=== PATIENT | male | born 1945 | race Caucasian/White ===

== ENCOUNTER → 2019-06-12 | Outpatient (CLI) | payer MEDICARE ==
--- NOTE | 2019-06-12 11:24 | REP ---
Right foot: Four views. History: Right foot pain. Findings: Four views of the right foot demonstrate Achilles calcaneal spurring. Vascular calcifications noted. Overall mineralization pattern is normal. There is a minimal hallux valgus with mild osteoarthritic spurring at the first MTP joint. There is a tiny accessory ossicle at the lateral aspect of the fourth DIP joint. No acute bony abnormality is seen. Impression: Mild osteoarthritic changes. Vascular calcification and heel spurring. Electronically Signed by Dionisio Khan MD 06/12/2019 12:16 P
== END ==
LOC: M CLY 08:09
PROVIDERS: ATTEND Family Medicine
DX: M19.071 Primary osteoarthritis, right ankle and foot (principal); M77.31 Calcaneal spur, right foot; M79.671 Pain in right foot

== ENCOUNTER → 2020-06-06 | Outpatient (REF) | payer MEDICARE ==
[2020-06-06 17:53] LABS: BASO # 0.1 10^3/uL (0.0-0.2); BASO % 1.3 % (0.0-1.0); EOS # 0.3 10^3/uL (0.0-0.5); EOS % 5.5 % (0.0-3.0); HEMATOCRIT 44.9 % (42.0-52.0); HEMOGLOBIN 14.7 g/dl (13.5-17.5); LYMPH # 1.5 10^3/uL (1.5-5.0); LYMPH % 33.4 % (24.0-44.0); MEAN CORPUSCULAR HEMOGLOBIN 28.8 pg (27.0-33.0); MEAN CORPUSCULAR HGB CONC 32.7 g/dl (32.0-36.5); MONO # 0.6 10^3/uL (0.0-0.8); MONO % 13.1 % (0.0-5.0); NEUTROPHILS # 2.1 10^3/uL (1.5-8.5); NEUTROPHILS % 46.3 % (36.0-66.0); PLATELET COUNT, AUTOMATED 212 10^3/uL (150-450); WHITE BLOOD COUNT 4.6 10^3/uL (4.0-10.0)
[2020-06-06 19:16] LABS: ALBUMIN 4.3 GM/DL (3.2-5.2); ALT/SGPT 55 U/L (12-78); BILIRUBIN,TOTAL 0.4 MG/DL (0.2-1.0); BLOOD UREA NITROGEN 25 MG/DL (7-18); CALCIUM LEVEL 9.6 MG/DL (8.8-10.2); CARBON DIOXIDE LEVEL 27 MEQ/L (21-32); CHLORIDE LEVEL 105 MEQ/L (98-107); CHOLESTEROL LEVEL 229 MG/DL (<200); CHOLESTEROL RISK RATIO 6.939 (<5); CREATININE FOR GFR 1.31 MG/DL (0.70-1.30); GLOMERULAR FILTRATION RATE 56.8 (>42); GLUCOSE, FASTING 173 MG/DL (70-100); HDL CHOLESTEROL 33 MG/DL (>40); NON-HDL-C 196 MG/DL; POTASSIUM SERUM 4.5 MEQ/L (3.5-5.1); SODIUM LEVEL 138 MEQ/L (136-145); TOTAL PROTEIN 7.4 GM/DL (6.4-8.2); TRIGLYCERIDES LEVEL 449 MG/DL (<150)
[2020-06-06 20:31] LABS: HEMOGLOBIN A1c 7.3 %
== END ==
LOC: M SFHCCLAY 12:21
PROVIDERS: ATTEND Family Medicine
DX: I10 Essential (primary) hypertension (principal); E11.9 Type 2 diabetes mellitus without complications; E78.5 Hyperlipidemia, unspecified

== ENCOUNTER → 2020-06-10 | Outpatient (CLI) | payer SELFPAY | LOC: M LABSMTC 13:05 | PROVIDERS: ATTEND Pediatrics | DX: Z20.828 Contact with and (suspected) exposure to other viral communicable diseases (principal) ==

== ENCOUNTER → 2020-06-14 | Outpatient (CLI) | payer MEDICARE ==
--- NOTE | 2020-06-14 08:35 | REP ---
INDICATION: M79.662 PAIN IN LEFT LOWER LEG COMPARISON: None. TECHNIQUE: There are four views: FINDINGS: Mineralization is normal. There is a calcification at the tip of the medial malleolus and a calcification of the tip of the lateral malleolus these are non-specific and could represent accessory ossicles or avulsion is. Correlate with clinical findings. No other evidence of fracture. Joint spaces are unremarkable. There are calcaneal plantar and Achilles spurs. IMPRESSION: Accessory ossicles versus avulsion is at the tips of the medial and lateral malleoli. Calcaneal spurs. Otherwise, negative left tibia-fibula. <Electronically signed by Warner Nunez > 06/14/20 [id number]
== END ==
LOC: M CLY 08:05
PROVIDERS: ATTEND Family Medicine
DX: M77.32 Calcaneal spur, left foot (principal); M79.662 Pain in left lower leg
CPT/HCPCS: 73590; G0463

== ENCOUNTER → 2020-09-06 | Outpatient (REF) | payer MEDICARE ==
[2020-09-06 16:44] LABS: HEMOGLOBIN A1c 7.1 %
[2020-09-06 16:57] LABS: ALBUMIN 4.2 GM/DL (3.2-5.2); BILIRUBIN,TOTAL 0.4 MG/DL (0.2-1.0); CALCIUM LEVEL 9.5 MG/DL (8.8-10.2); CREATININE FOR GFR 1.33 MG/DL (0.70-1.30); GLOMERULAR FILTRATION RATE 55.8 (>42); POTASSIUM SERUM 5.1 MEQ/L (3.5-5.1); TOTAL PROTEIN 7.8 GM/DL (6.4-8.2)
== END ==
LOC: M SFHCCLAY 09:54
PROVIDERS: ATTEND Family Medicine
DX: E11.42 Type 2 diabetes mellitus with diabetic polyneuropathy (principal)
CPT/HCPCS: 80053; 83036; G0463

== ENCOUNTER → 2020-11-08 | Outpatient (CLI) | payer MEDICARE ==
--- NOTE | 2020-11-08 14:04 | REP ---
INDICATION: SOB COMPARISON: 08/06/2006. TECHNIQUE: PA/Lateral FINDINGS: Lungs: Clear, no infiltrate. Heart: Normal in size. Mediastinum: Mediastinal silhouette unremarkable. Pleural angles: Unremarkable.. Bones and soft tissues: There are degenerative changes of the spine without compression deformity. IMPRESSION: No acute pulmonary disease. <Electronically signed by Warner Mccollum > 11/08/20 1400
== END ==
LOC: M CLY 13:21
PROVIDERS: ATTEND Family Medicine
DX: R06.02 Shortness of breath (principal)
CPT/HCPCS: 71046; G0463

== ENCOUNTER → 2020-12-27 | Outpatient (REF) | payer MEDICARE ==
[2020-12-27 11:47] LABS: HEMOGLOBIN A1c 6.8 %
[2020-12-27 12:02] LABS: ALT/SGPT 62 U/L (12-78); BILIRUBIN,TOTAL 0.4 MG/DL (0.2-1.0); BLOOD UREA NITROGEN 21 MG/DL (7-18); CALCIUM LEVEL 9.7 MG/DL (8.8-10.2); CARBON DIOXIDE LEVEL 29 MEQ/L (21-32); CHLORIDE LEVEL 104 MEQ/L (98-107); CHOLESTEROL LEVEL 224 MG/DL (<200); CHOLESTEROL RISK RATIO 8.296 (<5); CREATININE FOR GFR 1.18 MG/DL (0.70-1.30); GLOMERULAR FILTRATION RATE > 60.0 (>42); GLUCOSE, FASTING 135 MG/DL (70-100); HDL CHOLESTEROL 27 MG/DL (>40); NON-HDL-C 197 MG/DL; POTASSIUM SERUM 4.9 MEQ/L (3.5-5.1); SODIUM LEVEL 139 MEQ/L (136-145); TOTAL PROTEIN 7.3 GM/DL (6.4-8.2); TRIGLYCERIDES LEVEL 580 MG/DL (<150)
== END ==
LOC: M SFHCCLAY 08:50
PROVIDERS: ATTEND Family Medicine
DX: E11.42 Type 2 diabetes mellitus with diabetic polyneuropathy (principal); E78.5 Hyperlipidemia, unspecified
CPT/HCPCS: 80053; 80061; 83036; G0463

== ENCOUNTER → 2021-04-25 | Outpatient (REF) | payer MEDICARE ==
[2021-04-25 11:35] LABS: HEMOGLOBIN A1c 7.1 %
[2021-04-25 11:57] LABS: ALBUMIN 3.9 GM/DL (3.2-5.2); BILIRUBIN,TOTAL 0.4 MG/DL (0.2-1.0); CALCIUM LEVEL 9.1 MG/DL (8.8-10.2); CREATININE FOR GFR 1.38 MG/DL (0.70-1.30); GLOMERULAR FILTRATION RATE 53.3 (>42); POTASSIUM SERUM 4.6 MEQ/L (3.5-5.1); TOTAL PROTEIN 7.6 GM/DL (6.4-8.2)
== END ==
LOC: M SFHCCLAY 07:41
PROVIDERS: ATTEND Family Medicine
DX: E11.42 Type 2 diabetes mellitus with diabetic polyneuropathy (principal)
CPT/HCPCS: 80053; 83036; G0463

== ENCOUNTER → 2021-07-25 | Outpatient (REF) | payer MEDICARE ==
[~2021-07-25] MED LIST: AMIT10TA7 PO; CITA20TA6 PO; FLUT1INH INH; GLIM2TAB4 PO; HYDR12CA PO; LOSA100T45 PO; METO100T5 PO; OMEP1CAP73 PO; PRAV40TA2 PO; PREG50CA PO
[2021-07-25 12:21] LABS: HEMOGLOBIN A1c 6.8 %
[2021-07-25 12:25] LABS: ALBUMIN 3.9 GM/DL (3.2-5.2); BILIRUBIN,TOTAL 0.5 MG/DL (0.2-1.0); CALCIUM LEVEL 9.5 MG/DL (8.8-10.2); CREATININE FOR GFR 1.31 MG/DL (0.70-1.30); GLOMERULAR FILTRATION RATE 56.6 (>42); POTASSIUM SERUM 4.4 MEQ/L (3.5-5.1); TOTAL PROTEIN 7.3 GM/DL (6.4-8.2)
== END ==
LOC: M SFHCCLAY 07:51
PROVIDERS: ATTEND Family Medicine
DX: E11.42 Type 2 diabetes mellitus with diabetic polyneuropathy (principal)

== ENCOUNTER → 2021-08-15 | Outpatient (CLI) | payer MEDICARE | LOC: M SOG 09:27 | PROVIDERS: ATTEND Orthopaedic Surgery Hand Surgery | DX: M79.644 Pain in right finger(s) (principal); M79.645 Pain in left finger(s) ==

== ENCOUNTER → 2021-08-30 | Outpatient (CLI) | payer MEDICARE | LOC: M LABSMTC 09:13 | PROVIDERS: ATTEND Anesthesiology | DX: Z01.812 Encounter for preprocedural laboratory examination (principal); Z20.822 Contact with and (suspected) exposure to COVID-19 ==

== ENCOUNTER 2021-09-03 10:29 | Day surgery (SDC) | payer MEDICARE ==
[~2021-09-03] VITALS: Ht 180.3 cm; Wt 96.1 kg
[~2021-09-03 10:29] MED LIST changes: +LR 1,000 ML IV ONE; +MIDAZOLAM INJ 2MG/2ML VIAL (J2250 PER 1MG) IV PRN; +ceFAZolin SOD 2 GM in IV 1 EA IV ONE; +fentaNYL 100 MCG/2 ML INJECTION IV PRN
[2021-09-03] MEDS ORDERED: LIDOCAINE 2% 100MG/5ML SDV (FOR ANES.) As Ordered ONE (11:04)
[2021-09-03] MEDS ORDERED: KETOROLAC 60MG 2ML VIAL As Ordered ONE (11:04)
[2021-09-03] MEDS ORDERED: dexameTHASONE 4 MG/ML 1ML VIAL (J1100 PER 1MG) As Ordered ONE (11:04)
[2021-09-03] MEDS ORDERED: ONDANSETRON 4MG/2ML VIAL As Ordered ONE (11:04)
[2021-09-03] MEDS ORDERED: propofoL 200 MG/20 ML VIAL As Ordered ONE (11:04)
[2021-09-03] MEDS ORDERED: ACETAMINOPHEN 1000MG 100ML IV BTL (OFIRMEV) (J0131 PER 10MG) As Ordered ONE (11:04)
[2021-09-03] MEDS ORDERED: MIDAZOLAM INJ 2MG/2ML VIAL (J2250 PER 1MG) As Ordered ONE (11:05)
[2021-09-03] MEDS ORDERED: fentaNYL 100 MCG/2 ML INJECTION As Ordered ONE (11:05)
[2021-09-03] MEDS ORDERED: LIDOCAINE 5% OINT 30GM TUBE As Ordered ONE (11:14)
[2021-09-03] MEDS ORDERED: dexameTHASONE 10MG/1ML VIAL PRES.FREE (J1100 PER 1MG) XX ONE (12:20)
[2021-09-03] MEDS ORDERED: ROPIvacaine 0.5% 30ML INJECTION (J2795 PER 1MG) XX ONE (12:20)
[2021-09-03] MEDS ORDERED: EPINEPHrine INJ 1 MG/ML 1ML AMP XX ONE (12:20)
[2021-09-03] MEDS ORDERED: BACITRACIN OINTMENT 30GM TUBE As Ordered ONE (12:46)
[2021-09-03] MEDS ORDERED: BUPIVACAINE HCL 0.25% 30ML VIAL As Ordered ONE (12:54)
[2021-09-03] MEDS ORDERED: TRAM50TA2 PO (14:19)
[2021-09-03 15:20] VITALS: BP 132/68
== END 2021-09-03 15:32 | disposition home or self-care (01) ==
LOC: M SDC 10:29
PROVIDERS: ATTEND Orthopaedic Surgery Hand Surgery
DX: M18.11 Unilateral primary osteoarthritis of first carpometacarpal joint, right hand (principal); M79.644 Pain in right finger(s); M79.645 Pain in left finger(s); E11.42 Type 2 diabetes mellitus with diabetic polyneuropathy; J44.9 Chronic obstructive pulmonary disease, unspecified; I10 Essential (primary) hypertension; E78.5 Hyperlipidemia, unspecified; F32.9 Major depressive disorder, single episode, unspecified; K21.9 Gastro-esophageal reflux disease without esophagitis; M79.671 Pain in right foot; R41.3 Other amnesia; M54.2 Cervicalgia; R06.83 Snoring; Z90.5 Acquired absence of kidney; Z85.528 Personal history of other malignant neoplasm of kidney; Z79.899 Other long term (current) drug therapy; Z79.51 Long term (current) use of inhaled steroids; Z87.891 Personal history of nicotine dependence; Z88.0 Allergy status to penicillin; Z88.8 Allergy status to other drugs, medicaments and biological substances; Z88.1 Allergy status to other antibiotic agents; Z88.7 Allergy status to serum and vaccine
CPT/HCPCS: 25447; 76000; 88304; 88311; C1713; J0131; J0690; J1100; J1885; J2250; J2405; J3010

== ENCOUNTER → 2021-09-10 | Outpatient (CLI) | payer MEDICARE ==
[~2021-09-10] MED LIST changes: -LR 1,000 ML IV ONE; -MIDAZOLAM INJ 2MG/2ML VIAL (J2250 PER 1MG) IV PRN; +TRAM50TA2 PO; -ceFAZolin SOD 2 GM in IV 1 EA IV ONE; -fentaNYL 100 MCG/2 ML INJECTION IV PRN
== END ==
LOC: M SOG 09:57
PROVIDERS: ATTEND Physician Assistant
DX: Z48.89 Encounter for other specified surgical aftercare (principal)

== ENCOUNTER → 2021-10-02 | Outpatient (CLI) | payer MEDICARE | LOC: M SOG 08:04 | PROVIDERS: ATTEND Physician Assistant | DX: M18.11 Unilateral primary osteoarthritis of first carpometacarpal joint, right hand (principal) ==

== ENCOUNTER → 2021-10-16 | Outpatient (CLI) | payer MEDICARE | LOC: M SOG 13:13 | PROVIDERS: ATTEND Physician Assistant | DX: M18.11 Unilateral primary osteoarthritis of first carpometacarpal joint, right hand (principal) ==

== ENCOUNTER → 2021-10-24 | Outpatient (REF) | payer MEDICARE ==
[2021-10-24 11:50] LABS: BILIRUBIN,TOTAL 0.4 MG/DL (0.2-1.0); CALCIUM LEVEL 9.1 MG/DL (8.8-10.2); CREATININE FOR GFR 1.31 MG/DL (0.70-1.30); GLOMERULAR FILTRATION RATE 56.6 (>42); POTASSIUM SERUM 4.5 MEQ/L (3.5-5.1); TOTAL PROTEIN 7.4 GM/DL (6.4-8.2)
[2021-10-24 11:58] LABS: HEMOGLOBIN A1c 7.3 %
== END ==
LOC: M SFHCCLAY 08:37
PROVIDERS: ATTEND Family Medicine
DX: E11.42 Type 2 diabetes mellitus with diabetic polyneuropathy (principal)

== ENCOUNTER → 2022-06-12 | Outpatient (REF) | payer MEDICARE ==
[2022-06-12 11:54] LABS: HEMOGLOBIN A1c 6.8 % (4.0-6.0)
[2022-06-12 11:55] LABS: MAGNESIUM LEVEL 1.8 MG/DL (1.8-2.4)
[2022-06-12 11:57] LABS: ALBUMIN 3.8 G/DL (3.2-5.2); ALKALINE PHOSPHATASE 82 U/L (46-116); ALT/SGPT 52 U/L (7.0-40); AST/SGOT 20 U/L (<34); BILIRUBIN,TOTAL 0.3 MG/DL (0.3-1.2); BLOOD UREA NITROGEN 20 MG/DL (9-23); CALCIUM LEVEL 9.2 MG/DL (8.3-10.6); CARBON DIOXIDE LEVEL 28 MMOL/L (20-31); CHLORIDE LEVEL 100 MMOL/L (98-107); CHOLESTEROL LEVEL 180 MG/DL (<200); CREATININE FOR GFR 1.25 MG/DL (0.70-1.30); FREE T4 0.96 NG/DL (0.89-1.76); GLOMERULAR FILTRATION RATE 59.6 (>42); GLUCOSE, FASTING 121 MG/DL (74-106); HDL CHOLESTEROL 28.1 MG/DL (>40); NON-HDL-C 152 MG/DL; SODIUM LEVEL 136 MMOL/L (136-145); THYROID STIMULATING HORMONE 1.413 uIU/ML (0.55-4.78); TOTAL PROTEIN 7.1 G/DL (5.7-8.2); TRIGLYCERIDES LEVEL 457 MG/DL (<150)
== END ==
LOC: M SFHCCLAY 08:05
PROVIDERS: ATTEND Family Medicine
DX: E11.42 Type 2 diabetes mellitus with diabetic polyneuropathy (principal); K21.9 Gastro-esophageal reflux disease without esophagitis

== ENCOUNTER → 2022-11-06 | Outpatient (REF) | payer MEDICARE ==
[~2022-11-06] MED LIST changes: -LOSA100T45 PO; +LOSA100T46 PO
[2022-11-06 11:39] LABS: HEMATOCRIT 47.4 % (42.0-52.0); HEMOGLOBIN 15.7 g/dl (13.5-17.5); MEAN CORPUSCULAR HEMOGLOBIN 29.7 pg (27.0-33.0); MEAN CORPUSCULAR HGB CONC 33.1 g/dl (32.0-36.5); MEAN CORPUSCULAR VOLUME 89.6 fl (80.0-96.0); PLATELET COUNT, AUTOMATED 188 10^3/uL (150-450); RED BLOOD COUNT 5.29 10^6/uL (4.30-6.10); WHITE BLOOD COUNT 5.4 10^3/uL (4.0-10.0)
[2022-11-06 11:56] LABS: HEMOGLOBIN A1c 7.1 % (4.0-6.0)
[2022-11-06 12:11] LABS: ALBUMIN 4.3 G/DL (3.2-5.2); BILIRUBIN,TOTAL 0.5 MG/DL (0.3-1.2); CALCIUM LEVEL 9.7 MG/DL (8.3-10.6); CREATININE FOR GFR 1.34 MG/DL (0.70-1.30); POTASSIUM SERUM 4.8 MMOL/L (3.5-5.1); TOTAL PROTEIN 7.5 G/DL (5.7-8.2)
== END ==
LOC: M SFHCCLAY 08:08
PROVIDERS: ATTEND Family Medicine
DX: I10 Essential (primary) hypertension (principal); E11.42 Type 2 diabetes mellitus with diabetic polyneuropathy

== ENCOUNTER → 2023-03-12 | Outpatient (REF) | payer MEDICARE ==
[2023-03-12 12:41] LABS: ALBUMIN 3.8 G/DL (3.2-5.2); BILIRUBIN,TOTAL 0.2 MG/DL (0.3-1.2); CALCIUM LEVEL 9.8 MG/DL (8.3-10.6); CREATININE FOR GFR 1.28 MG/DL (0.70-1.30); GLOMERULAR FILTRATION RATE 57.9 (>42); POTASSIUM SERUM 5.5 MMOL/L (3.5-5.1); TOTAL PROTEIN 7.2 G/DL (5.7-8.2)
== END ==
LOC: M SFHCCLAY 08:00
PROVIDERS: ATTEND Family Medicine
DX: E11.42 Type 2 diabetes mellitus with diabetic polyneuropathy (principal)

== ENCOUNTER → 2023-07-15 | Outpatient (CLI) | payer MEDICARE | LOC: M RAD 08:35 | PROVIDERS: ATTEND Physician Assistant | DX: I71.43 Infrarenal abdominal aortic aneurysm, without rupture (principal) ==

== ENCOUNTER → 2023-07-16 | Outpatient (REF) | payer MEDICARE ==
[2023-07-16 11:27] LABS: HEMATOCRIT 47.4 % (42.0-52.0); HEMOGLOBIN 15.7 g/dl (13.5-17.5); MEAN CORPUSCULAR HEMOGLOBIN 28.6 pg (27.0-33.0); MEAN CORPUSCULAR HGB CONC 33.1 g/dl (32.0-36.5); MEAN CORPUSCULAR VOLUME 86.3 fl (80.0-96.0); PLATELET COUNT, AUTOMATED 180 10^3/uL (150-450); RED BLOOD COUNT 5.49 10^6/uL (4.30-6.10); WHITE BLOOD COUNT 5.3 10^3/uL (4.0-10.0)
[2023-07-16 11:59] LABS: ALKALINE PHOSPHATASE 83 U/L (46-116); ALT/SGPT 50 U/L (7.0-40); AST/SGOT 22 U/L (<34); BILIRUBIN,TOTAL 0.3 MG/DL (0.3-1.2); BLOOD UREA NITROGEN 24 MG/DL (9-23); CALCIUM LEVEL 9.4 MG/DL (8.3-10.6); CARBON DIOXIDE LEVEL 29 MMOL/L (20-31); CHLORIDE LEVEL 104 MMOL/L (98-107); CHOLESTEROL LEVEL 240 MG/DL (<200); CHOLESTEROL RISK RATIO 7.57 (<5); CREATININE FOR GFR 1.23 MG/DL (0.70-1.30); GLOMERULAR FILTRATION RATE > 60.0 (>42); GLUCOSE, FASTING 145 MG/DL (74-106); HDL CHOLESTEROL 31.7 MG/DL (>40); MAGNESIUM LEVEL 1.8 MG/DL (1.8-2.4); NON-HDL-C 208.3 MG/DL; POTASSIUM SERUM 4.8 MMOL/L (3.5-5.1); SODIUM LEVEL 138 MMOL/L (136-145); TOTAL PROTEIN 7.4 G/DL (5.7-8.2); TRIGLYCERIDES LEVEL 593 MG/DL (<150)
[2023-07-16 12:14] LABS: HEMOGLOBIN A1c 6.9 % (4.0-6.0)
== END ==
LOC: M SFHCCLAY 08:20
PROVIDERS: ATTEND Family Medicine
DX: E11.42 Type 2 diabetes mellitus with diabetic polyneuropathy (principal); E78.5 Hyperlipidemia, unspecified; K21.9 Gastro-esophageal reflux disease without esophagitis

== ENCOUNTER → 2023-07-30 | Outpatient (CLI) | payer MEDICARE | LOC: M SOG 13:53 | PROVIDERS: ATTEND Physician Assistant | DX: M54.12 Radiculopathy, cervical region (principal); M43.12 Spondylolisthesis, cervical region ==

== ENCOUNTER → 2023-09-03 | Outpatient (CLI) | payer MEDICARE ==
[~2023-09-03] MED LIST changes: +ISOVUE-370 76% 100ML VIAL As Ordered ONE
== END ==
LOC: M RAD 09:33
PROVIDERS: ATTEND Physician Assistant
DX: Z53.9 Procedure and treatment not carried out, unspecified reason (principal)

== ENCOUNTER → 2023-11-05 | Outpatient (REF) | payer MEDICARE ==
[~2023-11-05] MED LIST changes: -ISOVUE-370 76% 100ML VIAL As Ordered ONE
[2023-11-05 18:08] LABS: HEMOGLOBIN A1c 7.1 % (4.0-6.0)
[2023-11-05 18:18] LABS: ALBUMIN 3.9 G/DL (3.2-5.2); ALKALINE PHOSPHATASE 89 U/L (46-116); ALT/SGPT 58 U/L (7.0-40); AST/SGOT 25 U/L (<34); BILIRUBIN,TOTAL 0.4 MG/DL (0.3-1.2); BLOOD UREA NITROGEN 24 MG/DL (9-23); CALCIUM LEVEL 9.5 MG/DL (8.3-10.6); CARBON DIOXIDE LEVEL 28 MMOL/L (20-31); CHLORIDE LEVEL 100 MMOL/L (98-107); CREATININE FOR GFR 1.23 MG/DL (0.70-1.30); GLOMERULAR FILTRATION RATE > 60.0 (>42); GLUCOSE, FASTING 187 MG/DL (74-106); POTASSIUM SERUM 4.9 MMOL/L (3.5-5.1); SODIUM LEVEL 137 MMOL/L (136-145); TOTAL PROTEIN 7.1 G/DL (5.7-8.2)
== END ==
LOC: M SFHCCLAY 11:12
PROVIDERS: ATTEND Family Medicine
DX: E11.42 Type 2 diabetes mellitus with diabetic polyneuropathy (principal)

== ENCOUNTER → 2023-12-03 | Outpatient (CLI) | payer MEDICARE | LOC: M RAD 13:03 | PROVIDERS: ATTEND Family Medicine | DX: R91.1 Solitary pulmonary nodule (principal); N28.9 Disorder of kidney and ureter, unspecified ==

== ENCOUNTER → 2024-03-24 | Outpatient (REF) | payer MEDICARE ==
[2024-03-24 11:56] LABS: HEMOGLOBIN A1c 6.6 % (4.0-6.0)
[2024-03-24 12:02] LABS: ALBUMIN 3.9 G/DL (3.2-5.2); ALKALINE PHOSPHATASE 86 U/L (46-116); ALT/SGPT 51 U/L (7.0-40); AST/SGOT 19 U/L (<34); BILIRUBIN,TOTAL 0.3 MG/DL (0.3-1.2); BLOOD UREA NITROGEN 21 MG/DL (9-23); CALCIUM LEVEL 9.6 MG/DL (8.3-10.6); CARBON DIOXIDE LEVEL 26 MMOL/L (20-31); CHLORIDE LEVEL 106 MMOL/L (98-107); CREATININE FOR GFR 1.13 MG/DL (0.70-1.30); GLOMERULAR FILTRATION RATE > 60.0 (>42); GLUCOSE, FASTING 146 MG/DL (74-106); POTASSIUM SERUM 4.4 MMOL/L (3.5-5.1); SODIUM LEVEL 137 MMOL/L (136-145); TOTAL PROTEIN 7.3 G/DL (5.7-8.2)
== END ==
LOC: M SFHCCLAY 07:49
PROVIDERS: ATTEND Family Medicine
DX: E11.42 Type 2 diabetes mellitus with diabetic polyneuropathy (principal)

== ENCOUNTER → 2024-07-21 | Outpatient (REF) | payer MEDICARE | LOC: M SFHCDERM 13:24 | PROVIDERS: ATTEND Nurse Practitioner Family | DX: D49.2 Neoplasm of unspecified behavior of bone, soft tissue, and skin (principal); Z53.9 Procedure and treatment not carried out, unspecified reason ==

== ENCOUNTER → 2024-07-28 | Outpatient (REF) | payer MEDICARE ==
[2024-07-28 11:42] LABS: HEMATOCRIT 47.4 % (42.0-52.0); HEMOGLOBIN 15.6 g/dl (13.5-17.5); MEAN CORPUSCULAR HGB CONC 32.9 g/dl (32.0-36.5); MEAN CORPUSCULAR VOLUME 88.1 fl (80.0-96.0); PLATELET COUNT, AUTOMATED 192 10^3/uL (150-450); RED BLOOD COUNT 5.38 10^6/uL (4.30-6.10); WHITE BLOOD COUNT 5.2 10^3/uL (4.0-10.0)
[2024-07-28 12:11] LABS: HEMOGLOBIN A1c 6.6 % (4.0-6.0)
[2024-07-28 13:41] LABS: ALBUMIN 4.1 G/DL (3.2-5.2); ALKALINE PHOSPHATASE 92 U/L (40-129); ALT/SGPT 48 U/L (7.0-40); AST/SGOT 23 U/L (<34); BILIRUBIN,TOTAL 0.4 MG/DL (0.3-1.2); BLOOD UREA NITROGEN 22 MG/DL (9-23); CALCIUM LEVEL 9.7 MG/DL (8.3-10.6); CARBON DIOXIDE LEVEL 29 MMOL/L (20-31); CHLORIDE LEVEL 101 MMOL/L (98-107); CHOLESTEROL LEVEL 231 MG/DL (<200); CHOLESTEROL RISK RATIO 6.73 (<5); CREATININE FOR GFR 1.13 MG/DL (0.70-1.30); GLOMERULAR FILTRATION RATE > 60.0 (>42); GLUCOSE, FASTING 125 MG/DL (74-106); HDL CHOLESTEROL 34.3 MG/DL (>40); NON-HDL-C 196.7 MG/DL; POTASSIUM SERUM 4.5 MMOL/L (3.5-5.1); SODIUM LEVEL 142 MMOL/L (136-145); TOTAL PROTEIN 7.8 G/DL (5.7-8.2); TRIGLYCERIDES LEVEL 494 MG/DL (<150)
== END ==
LOC: M SFHCCLAY 09:16
PROVIDERS: ATTEND Family Medicine
DX: E11.42 Type 2 diabetes mellitus with diabetic polyneuropathy (principal); I10 Essential (primary) hypertension; E78.5 Hyperlipidemia, unspecified

== ENCOUNTER → 2024-10-13 | Outpatient (CLI) | payer MEDICARE | LOC: M RAD 10:15 | PROVIDERS: ATTEND Family Medicine | DX: N28.1 Cyst of kidney, acquired (principal); K76.0 Fatty (change of) liver, not elsewhere classified ==

== ENCOUNTER → 2024-11-02 | Outpatient (CLI) | payer MEDICARE ==
[~2024-11-02] MED LIST changes: +GASTROGRAFIN SOLUTION 30ML ONE; +ISOVUE-370 76% 100ML VIAL ONE; -PREG50CA PO; +PREG50CA87 PO
== END ==
LOC: M PLAIMG 12:33
PROVIDERS: ATTEND Family Medicine
DX: N28.9 Disorder of kidney and ureter, unspecified (principal)
CPT/HCPCS: 74177; Q9963; Q9967

== ENCOUNTER → 2024-11-03 | Outpatient (REF) | payer MEDICARE ==
[~2024-11-03] MED LIST changes: -GASTROGRAFIN SOLUTION 30ML ONE; -ISOVUE-370 76% 100ML VIAL ONE
== END ==
LOC: M SFHCCLAY 11:38
PROVIDERS: ATTEND Family Medicine
DX: Z53.9 Procedure and treatment not carried out, unspecified reason (principal)